=== PATIENT | male | born 1995 | race Two or more races ===

== ENCOUNTER → 2019-07-10 | Outpatient (CLI) | payer BC ==
--- NOTE | 2019-07-10 15:36 | Diagnostic Imaging Report ---
EXAMINATION: WRIST COMPLETE RIGHT INDICATION: Right wrist pain, injured playing basketball COMPARISON: None FINDINGS: No acute fracture or dislocation. Alignment is anatomic. The soft tissues appear unremarkable. No substantial degenerative change. IMPRESSION: No acute osseous injury. Signed by: Ran Christian MD on 07/10/2019 3:33 PM
== END ==
LOC: RAD 15:03
DX: S69.91XA Unspecified injury of right wrist, hand and finger(s), initial encounter (principal); Y93.67 Activity, basketball